=== PATIENT | female | born 1980 | race African-American/Black ===

== ENCOUNTER 2017-07-12 10:18 | Inpatient (IN) ==
[2017-07-12 11:06] LABS: Basophils % 0.3 % (0.0-0.8); Eosinophils # 0.2 10*3/uL (0.0-0.87); Eosinophils % 2.6 % (0.00-10.9); Hemoglobin 12.6 GM/DL (12.0-16.0); Immature Granulocytes % 0.4 %; Immature Granulocytes Absolute 0.03 #; Lymphocytes # 1.6 10*3/uL (1.4-4.0); Lymphocytes % 20.6 % (21.3-54.2); Mean Corpuscular HGB Conc 34.1 GM/DL (32-36); Mean Corpuscular Hemoglobin 31 PG (27-34); Mean Platelet Volume 12.1 FL (9.6-12.0); Monocytes # 0.7 10*3/uL (0.11-0.8); Monocytes % 9.8 % (1.7-12.7); Neutrophils % 66.3 % (38.7-73.9); Platelet Count 196 T/CUMM (130-400); Red Blood Count 4.11 MC/CUMM (3.8-5.5); Red Cell Distribution Width 14.2 % (9.3-17.3); White Blood Count 7.6 T/CUMM (4-12)
[2017-07-12 11:13] LABS: Apearance,Urine CLOUDY (Clear); Bacteria,Urine Occasional /HPF (Few); Bilirubin,Urine Negative (Negative); Blood, Urine Negative (Negative); Glucose,Urine (UA) Negative (Negative); Ketones,Urine 5 mg/dL (Negative); Mucus,Urine Moderate /LPF (Occasional); Nitrite,Urine Negative (Negative); Protein,Urine >=500 MG/DL; RBC,Urine 2 /HPF (0-4); Squamous Epithelial Cell,Urine Few /HPF (0-10); Urine Color Yellow (Yellow); Urine Specific Gravity 1.023 (1.001-1.035); Urine Urobilinogen < 2.0 EU/DL (0.2-1.0); WBC,Urine 5 /HPF (0-6)
[2017-07-12 11:21] LABS: INR 0.9; PT Patient Result 9.4 SECS
[2017-07-12 11:38] LABS: Alanine Aminotransferase 18 U/L (13-56); Albumin 2.5 G/DL (3.4-5.0); Alkaline Phosphatase 87 U/L (45-117); Aspartate Amino Transferase 17 U/L (0-37); Bilirubin,Direct < 0.100 MG/DL (0.0-0.20); Bilirubin,Total < 0.39 MG/DL (0.2-1.0); Blood Urea Nitrogen 8 MG/DL (7-18); Calcium 8.5 MG/DL (8.5-10.1); Glucose 72 MG/DL (74-106); Osmolality,Calculated 271.7 MOS/KG (273-304); Potassium 3.9 MMOL/L (3.5-5.1); Sodium 138 MMOL/L (136-145); Total Protein 6.1 G/DL (6.4-8.3)
[2017-07-12] MEDS: hydrALAZINE 20 MG/1 ML VIAL IV SCH ×2 (11:45→11:55)
[2017-07-12] MEDS ORDERED: LACTATED RINGERS 1,000 ML IV SCH (12:00)
[2017-07-12] MEDS ORDERED: BETAMETH SODIUM PHOS/ACETATE 30 MG/5 ML VIAL IM SCH (12:00)
[2017-07-12] MEDS ORDERED: FAMOTIDINE 20 MG/2 ML VIAL IV ONE (12:04)
[2017-07-12] MEDS ORDERED: CITRIC ACID/SODIUM CITRATE 30 ML UDCUP PO ONE (12:04)
[2017-07-12] MEDS ORDERED: ceFAZolin 2,000 MG in PREMIX 1 EACH IV ONE (12:04)
[2017-07-12] MEDS ORDERED: OXYTOCIN/LR 30 UNIT/1,000 ML BAG IV ONE (12:11)
[2017-07-12] MEDS ORDERED: OXYTOCIN 10 UNIT/ML VIAL IM ONE (12:21)
[2017-07-12 13:41] LABS: Cord Arterial Blood HCO3 21.9 MMOL/L
[2017-07-12 13:43] LABS: Cord Venous Blood HCO3 23.1 MMOL/L; Cord Venous Blood PCO2 51.3 MMHG; Cord Venous Blood PO2 28.5
[2017-07-12 13:50] LABS: Apearance,Urine CLEAR (Clear); Bilirubin,Urine Negative (Negative); Blood, Urine Negative (Negative); Glucose,Urine (UA) Negative (Negative); Ketones,Urine 5 mg/dL (Negative); Nitrite,Urine Negative (Negative); Protein,Urine 100 MG/DL; RBC,Urine 2 /HPF (0-4); Squamous Epithelial Cell,Urine Occasional /HPF (0-10); Urine Color Yellow (Yellow); Urine Specific Gravity 1.011 (1.001-1.035); Urine Urobilinogen < 2.0 EU/DL (0.2-1.0); WBC,Urine 3 /HPF (0-6)
[2017-07-12] MEDS ORDERED: OXYTOCIN/LR 20 UNIT/1,000 ML BAG IV ONE ×3 (13:51→21:10)
[2017-07-12] MEDS ORDERED: MORPHINE 10 MG/10 ML VIAL ONE (14:40)
[2017-07-12] MEDS: HYDROmorphone 2 MG/1 ML VIAL IV PRN ×2 (14:46→16:41)
[2017-07-12] MEDS ORDERED: PROPOFOL 200 MG/20 ML VIAL IV ONE (14:52)
[2017-07-12] MEDS ORDERED: MIDAZOLAM 2 MG/2 ML VIAL ONE (14:52)
[2017-07-12] MEDS ORDERED: DEXAMETHASONE 10 MG/1 ML VIAL ONE (14:52)
[2017-07-12] MEDS ORDERED: SEVOFLURANE 1 UNIT/15 MINUTE INH ONE (14:52)
[2017-07-12] MEDS ORDERED: fentaNYL 100 MCG/2 ML VIAL ONE (14:52)
[2017-07-12] MEDS ORDERED: GLYCOPYRROLATE 0.4 MG/2 ML VIAL ONE (14:53)
[2017-07-12] MEDS ORDERED: SUCCINYLCHOLINE 200 MG/10 ML VIAL ONE (14:53)
[2017-07-12] MEDS ORDERED: ROCURONIUM 100 MG/10 ML VIAL IV ONE (14:53)
[2017-07-12] MEDS ORDERED: ONDANSETRON 4 MG/2 ML VIAL ONE (14:53)
[2017-07-12] MEDS ORDERED: LACTATED RINGERS 1,000 ML IV ONE (14:55)
[2017-07-12] MEDS ORDERED: NEOSTIGMINE 10 MG/10 ML VIAL ONE (15:29)
[2017-07-12] MEDS ORDERED: hydrALAZINE 20 MG/1 ML VIAL ONE (16:35)
[2017-07-12] MEDS: hydrALAZINE 20 MG/1 ML VIAL IV PRN ×2 (16:39→16:55)
[2017-07-12] MEDS ORDERED: NALOXONE 0.4 MG/ML VIAL IV PRN (18:05)
[2017-07-12] MEDS: HYDROmorphone PCA 30 MG/30 ML SYRINGE IV SCH (18:26)
[2017-07-12] MEDS ORDERED: ONDANSETRON 4 MG/2 ML VIAL IV PRN (21:10)
[2017-07-12] MEDS ORDERED: RHO(D) IMMUNE GLOBULIN 300 MCG SYRINGE IM ONE (21:10)
[2017-07-12] MEDS ORDERED: MAGNESIUM HYDROXIDE SUSP 30 ML UDCUP PO PRN (21:10)
[2017-07-12] MEDS: ceFAZolin 1,000 MG in SYRINGE 1 EACH IV SCH (22:11)
[2017-07-12] MEDS: MAGNESIUM SULF DRIP 40 GM/1,000 ML ML IV SCH (22:20)
[2017-07-12] MEDS ORDERED: hydrALAZINE 20 MG/1 ML VIAL IV ONE ×2 (23:00)
[2017-07-12] MEDS: DOCUSATE SODIUM 100 MG CAPSULE PO SCH (23:45)
[2017-07-12] MEDS: LACTATED RINGERS 1,000 ML IV SCH (23:47)
[2017-07-13] MEDS ORDERED: LEVALBUTEROL 1.25 MG/3 ML NEB RESP TX ONE
[2017-07-13 04:16] LABS: Basophils % 0.1 % (0.0-0.8); Hematocrit 38.9 VOL% (35.7-47.0); Hemoglobin 13.5 GM/DL (12.0-16.0); Immature Granulocytes % 0.4 %; Immature Granulocytes Absolute 0.06 #; Lymphocytes # 1.1 10*3/uL (1.4-4.0); Lymphocytes % 6.9 % (21.3-54.2); Mean Corpuscular HGB Conc 34.7 GM/DL (32-36); Mean Corpuscular Hemoglobin 31 PG (27-34); Mean Platelet Volume 12.7 FL (9.6-12.0); Monocytes # 0.7 10*3/uL (0.11-0.8); Monocytes % 4.6 % (1.7-12.7); Neutrophils # 13.5 10*3/uL (1.4-7.4); Platelet Count 223 T/CUMM (130-400); Red Blood Count 4.42 MC/CUMM (3.8-5.5); Red Cell Distribution Width 14.3 % (9.3-17.3); White Blood Count 15.3 T/CUMM (4-12)
[2017-07-13] MEDS ORDERED: FUROSEMIDE 40 MG/4 ML VIAL IV ONE (05:00)
[2017-07-13] MEDS: ceFAZolin 1,000 MG in SYRINGE 1 EACH IV SCH (05:32)
[2017-07-13 06:01] LABS: INR 0.9; PT Patient Result 9.2 SECS; Partial Thromboplastin Time 27.3 SECS (0-40)
[2017-07-13 06:39] LABS: Alanine Aminotransferase 24 U/L (13-56); Albumin 2.5 G/DL (3.4-5.0); Alkaline Phosphatase 91 U/L (45-117); Aspartate Amino Transferase 35 U/L (0-37); Bilirubin,Direct < 0.100 MG/DL (0.0-0.20); Blood Urea Nitrogen 4 MG/DL (7-18); Calcium 7.8 MG/DL (8.5-10.1); Glucose 104 MG/DL (74-106); Osmolality,Calculated 269.8 MOS/KG (273-304); Sodium 137 MMOL/L (136-145); Total Protein 6.5 G/DL (6.4-8.3)
[2017-07-13] MEDS: LEVALBUTEROL 1.25 MG/3 ML NEB RESP TX SCH ×3 (08:21→20:09)
[2017-07-13] MEDS ORDERED: hydrALAZINE 25 MG TABLET PO SCH ×3 (09:00→17:00)
[2017-07-13] MEDS: MULTIVITAMIN (PRENATAL) TABLET PO SCH (09:23)
[2017-07-13] MEDS: DOCUSATE SODIUM 100 MG CAPSULE PO SCH (09:23)
[2017-07-13] MEDS: SIMETHICONE CHEW 80 MG TABLET PO PRN (09:24)
[2017-07-13] MEDS: FUROSEMIDE 40 MG/4 ML VIAL IV SCH ×2 (11:51→17:42)
[2017-07-13] MEDS: IBUPROFEN 800 MG TABLET PO PRN (11:57)
[2017-07-13] MEDS: LACTATED RINGERS 1,000 ML IV SCH (15:04)
[2017-07-13] MEDS: MAGNESIUM SULF DRIP 40 GM/1,000 ML ML IV SCH (15:46)
[2017-07-13] MEDS ORDERED: LEVALBUTEROL 1.25 MG/3 ML NEB RESP TX SCH (23:00)
[2017-07-14] MEDS: IBUPROFEN 800 MG TABLET PO PRN (01:33)
[2017-07-14] MEDS ORDERED: miSOPROStol 200 MCG TABLET ONE (05:27)
[2017-07-14] MEDS: HYDROmorphone PCA 30 MG/30 ML SYRINGE IV SCH ×2 (06:30→20:01)
[2017-07-14] MEDS ORDERED: LABETALOL 20 MG/4 ML SYRINGE IV ONE (09:02)
[2017-07-14 09:13] LABS: Alanine Aminotransferase 21 U/L (13-56); Albumin 2.2 G/DL (3.4-5.0); Alkaline Phosphatase 75 U/L (45-117); Aspartate Amino Transferase 24 U/L (0-37); Bilirubin,Total < 0.39 MG/DL (0.2-1.0); Blood Urea Nitrogen 5 MG/DL (7-18); Calcium 7.9 MG/DL (8.5-10.1); Glucose 140 MG/DL (74-106); Osmolality,Calculated 271.8 MOS/KG (273-304); Potassium 3.6 MMOL/L (3.5-5.1); Sodium 137 MMOL/L (136-145); Total Protein 6.3 G/DL (6.4-8.3)
[2017-07-14] MEDS: DOCUSATE SODIUM 100 MG CAPSULE PO SCH ×4 (09:58→20:28)
[2017-07-14] MEDS: MULTIVITAMIN (PRENATAL) TABLET PO SCH (09:59)
[2017-07-14] MEDS ORDERED: FUROSEMIDE 40 MG/4 ML VIAL IV SCH (11:00)
[2017-07-14] MEDS ORDERED: LABETALOL 100 MG TABLET ONE (12:28)
[2017-07-14] MEDS: LABETALOL 100 MG TABLET PO SCH ×2 (12:32→20:27)
[2017-07-14] MEDS: DEXTROSE 5% LACTATED RINGERS 1,000 ML IV SCH (14:00)
[2017-07-14] MEDS: MAGNESIUM SULF DRIP 40 GM/1,000 ML ML IV SCH ×4 (17:30→21:36)
[2017-07-14] MEDS: LABETALOL 20 MG/4 ML SYRINGE IV PRN (19:02)
[2017-07-14] MEDS ORDERED: LORazepam 2 MG/1 ML VIAL IV PRN (19:30)
[2017-07-14] MEDS: ISOSORBIDE DINITRATE 20 MG TABLET PO SCH ×2 (19:35→20:02)
[2017-07-14] MEDS: LEVALBUTEROL 1.25 MG/3 ML NEB RESP TX SCH (20:03)
[2017-07-14] MEDS ORDERED: ISOSORBIDE DINITRATE 20 MG TABLET PO SCH (21:00)
[2017-07-15] MEDS: LABETALOL 20 MG/4 ML SYRINGE IV PRN (02:08)
[2017-07-15] MEDS: DEXTROSE 5% LACTATED RINGERS 1,000 ML IV SCH (04:49)
[2017-07-15] MEDS: LEVALBUTEROL 1.25 MG/3 ML NEB RESP TX SCH ×3 (08:08→20:35)
[2017-07-15] MEDS: SIMETHICONE CHEW 80 MG TABLET PO PRN (08:48)
[2017-07-15] MEDS: ISOSORBIDE DINITRATE 20 MG TABLET PO SCH ×2 (08:49→20:50)
[2017-07-15] MEDS: ACETAMINOPHEN 325 MG TABLET PO PRN (08:49)
[2017-07-15] MEDS: DOCUSATE SODIUM 100 MG CAPSULE PO SCH ×2 (08:49→20:50)
[2017-07-15] MEDS: LABETALOL 100 MG TABLET PO SCH (08:50)
[2017-07-15] MEDS: SPIRONOLACTONE 25 MG TABLET PO SCH (08:50)
[2017-07-15] MEDS: LABETALOL 200 MG TABLET PO SCH ×2 (11:15→20:50)
[2017-07-15] MEDS: MULTIVITAMIN (PRENATAL) TABLET PO SCH (14:51)
[2017-07-15] MEDS: MAGNESIUM SULF DRIP 40 GM/1,000 ML ML IV SCH ×2 (17:30→20:50)
[2017-07-16 05:49] LABS: Magnesium 2.6 MG/DL (1.8-2.4); Osmolality,Calculated 280.1 MOS/KG (273-304); Potassium 3.8 MMOL/L (3.5-5.1)
[2017-07-16] MEDS: LEVALBUTEROL 1.25 MG/3 ML NEB RESP TX SCH ×2 (07:50→13:02)
[2017-07-16] MEDS ORDERED: levETIRAcetam 250 MG TABLET PO SCH (09:00)
[2017-07-16] MEDS ORDERED: levETIRAcetam 500 MG TABLET PO SCH (09:00)
[2017-07-16] MEDS: LABETALOL 200 MG TABLET PO SCH ×2 (09:36→21:04)
[2017-07-16] MEDS: ISOSORBIDE DINITRATE 20 MG TABLET PO SCH (09:36)
[2017-07-16] MEDS: MULTIVITAMIN (PRENATAL) TABLET PO SCH (09:36)
[2017-07-16] MEDS: DOCUSATE SODIUM 100 MG CAPSULE PO SCH ×2 (09:36→21:05)
[2017-07-16] MEDS: SPIRONOLACTONE 25 MG TABLET PO SCH (09:37)
[2017-07-16] MEDS: LISINOPRIL 20 MG TABLET PO SCH (10:48)
[2017-07-16] MEDS: IBUPROFEN 800 MG TABLET PO PRN (10:53)
[2017-07-16] MEDS: ASPIRIN CHEW 81 MG TABLET PO SCH (15:58)
[2017-07-16] MEDS ORDERED: cloNIDine 0.1 MG TABLET PO SCH (16:00)
[2017-07-16] MEDS: ISOSORBIDE DINITRATE 10 MG TABLET PO SCH (21:04)
[2017-07-16] MEDS: cloNIDine 0.1 MG TABLET PO SCH (21:06)
[2017-07-16] MEDS: ACETAMINOPHEN 325 MG TABLET PO PRN (21:06)
[2017-07-16] MEDS: levETIRAcetam 500 MG TABLET PO SCH (21:11)
[2017-07-17] MEDS ORDERED: LISINOPRIL 20 MG TABLET PO ONE (04:15)
[2017-07-17 07:39] LABS: Calcium 8.6 MG/DL (8.5-10.1); Osmolality,Calculated 279.3 MOS/KG (273-304); Potassium 4.3 MMOL/L (3.5-5.1)
[2017-07-17] MEDS: DOCUSATE SODIUM 100 MG CAPSULE PO SCH ×2 (09:33→20:52)
[2017-07-17] MEDS: cloNIDine 0.1 MG TABLET PO SCH ×2 (09:33→20:50)
[2017-07-17] MEDS: levETIRAcetam 500 MG TABLET PO SCH ×2 (09:33→20:50)
[2017-07-17] MEDS: MULTIVITAMIN (PRENATAL) TABLET PO SCH (09:34)
[2017-07-17] MEDS: ISOSORBIDE DINITRATE 10 MG TABLET PO SCH ×2 (09:34→20:49)
[2017-07-17] MEDS: LISINOPRIL 20 MG TABLET PO SCH ×3 (09:34→20:49)
[2017-07-17] MEDS: LABETALOL 200 MG TABLET PO SCH ×2 (09:35→20:49)
[2017-07-17] MEDS: SPIRONOLACTONE 25 MG TABLET PO SCH (09:35)
[2017-07-17] MEDS: ASPIRIN CHEW 81 MG TABLET PO SCH (09:35)
[2017-07-17] MEDS: ACETAMINOPHEN 325 MG TABLET PO PRN (10:29)
[2017-07-18] MEDS: LABETALOL 200 MG TABLET PO SCH (09:51)
[2017-07-18] MEDS: SPIRONOLACTONE 25 MG TABLET PO SCH (09:51)
[2017-07-18] MEDS: levETIRAcetam 500 MG TABLET PO SCH (09:51)
[2017-07-18] MEDS: DOCUSATE SODIUM 100 MG CAPSULE PO SCH (09:51)
[2017-07-18] MEDS: ISOSORBIDE DINITRATE 10 MG TABLET PO SCH (09:51)
[2017-07-18] MEDS: LISINOPRIL 20 MG TABLET PO SCH (09:51)
[2017-07-18] MEDS: MULTIVITAMIN (PRENATAL) TABLET PO SCH (09:51)
[2017-07-18] MEDS: cloNIDine 0.1 MG TABLET PO SCH (09:51)
[2017-07-18] MEDS: ASPIRIN CHEW 81 MG TABLET PO SCH (09:51)
[2017-07-18] MEDS: ACETAMINOPHEN 325 MG TABLET PO PRN (12:35)
[2017-07-18 15:27] VITALS: BP 149/55
[2017-07-19 15:36] LABS: Protein C Antigen 109 % (70-150)
[2017-07-20 07:21] LABS: 5-Hydroxyindoleacetic Acid, U 4.1 mg/24 h (<=8.0)
[2017-07-22 12:46] LABS: F5DNA Reviewed By SEE COMMENTS; Factor V Leiden (R506Q) Mutati Negative (Negative)
== END 2017-07-18 17:00 | disposition home or self-care (01) | DRG 540 ==
LOC: N.LDOUT 10:18 → N.LD 10:23 → N.OB 07-14 16:15 → N.CC 07-14 18:24 → N.OB 07-16 16:55
PROVIDERS: ADMIT Obstetrics & Gynecology; ATTEND Obstetrics & Gynecology